=== PATIENT | female | born 1940 | race Hispanic/Latino ===

== ENCOUNTER 2016-09-23 13:33 | Emergency (ER) | payer MEDICARE, OTHER ==
[2016-09-23 13:33] VITALS: BMI 26.1
[2016-09-23 13:41] VITALS: TEMP 97.8
[2016-09-23] MEDS ORDERED: HYDROmorphone 1 mg Tab PO STA (14:00)
--- NOTE | 2016-09-23 14:04 | C.PDOC ---
History Of Present Illness <Kimberly Vázquez - Last Filed: 09/23/16 16:00> <Keily Ortega - Last Filed: 09/23/16 16:07> 75 y/o female presents to the ED with pain and redness of the left foot and the left great toe for 3 days. Pt notes not knowing why pain is present and took Tylenol without relief. Pt denies any fever, chills, SOB. nausea, vomiting, diarrhea, or any other complaints. (Kimberly Vázquez) 75 y/o female presents to the ED with pain and redness of the left foot and the left great toe for 3 days. Pt notes not knowing why pain is present and took Tylenol without relief. Pt denies any fever, chills, SOB. nausea, vomiting, diarrhea, or any other complaints. (Keily Ortega) History Per: Patient History/Exam Limitations: no limitations Onset/Duration Of Symptoms: Days Current Symptoms Are (Timing): Still Present Location Of Injury: Left: Foot (Left foot and great toe) Severity: Mild <Kimberly Vázquez - Last Filed: 09/23/16 16:00> History Per: Patient History/Exam Limitations: no limitations Onset/Duration Of Symptoms: Days Current Symptoms Are (Timing): Still Present Location Of Injury: Left: Foot (Left foot and great toe) Severity: Mild <Keily Ortega - Last Filed: 09/23/16 16:07> Time Seen by Provider: 09/23/16 13:44 Chief Complaint (Nursing): Abnormal Skin Integrity Past Medical History Reviewed: Historical Data, Nursing Documentation, Vital Signs Family History: States: Unknown Family Hx <Kimberly Vázquez - Last Filed: 09/23/16 16:00> Reviewed: Historical Data, Nursing Documentation, Vital Signs - Medical History PMH: Anxiety, Arthritis, Fractures (Right Tibia ORIF post hardware removal), HTN , Hypercholesterolemia, Mitral Valve Prolapse, Peripheral Edema, Pneumonia Denies: Chronic Kidney Disease Family History: States: Unknown Family Hx - Social History Hx Tobacco Use: No Hx Alcohol Use: No Hx Substance Use: No - Immunization History Hx Tetanus Toxoid Vaccination: No Hx Influenza Vaccination: Yes Hx Pneumococcal Vaccination: No <Keily Ortega - Last Filed: 09/23/16 16:07> Vital Signs: Last Vital Signs Temp 97.8 F 09/23/16 15:31 Pulse 90 09/23/16 15:31 Resp 20 09/23/16 15:31 BP 130/84 09/23/16 15:31 Pulse Ox 96 09/23/16 16:04 - [facility] Procedures APPLICATION OF SPLINT (11/26/13) CORONAR ARTERIOGR-2 CATH (01/25/14) LEFT HEART CARDIAC CATH (01/25/14) LT HEART ANGIOCARDIOGRAM (01/25/14) Review Of Systems Except As Marked, All Systems Reviewed And Found Negative. Constitutional: Negative for: Fever, Chills Respiratory: Negative for: Shortness of Breath Gastrointestinal: Negative for: Nausea, Vomiting, Diarrhea Musculoskeletal: Positive for: Foot Pain (Left foot and left great toe) <Kimberly Vázquez A - Last Filed: 09/23/16 16:00> Except As Marked, All Systems Reviewed And Found Negative. Constitutional: Negative for: Fever, Chills Respiratory: Negative for: Shortness of Breath Gastrointestinal: Negative for: Nausea, Vomiting, Diarrhea Musculoskeletal: Positive for: Foot Pain (Left foot and left great toe) <Keily Ortega A - Last Filed: 09/23/16 16:07> Physical Exam - Physical Exam Appears: Non-toxic, No Acute Distress Skin: Warm, Dry Head: Atraumatic, Normacephalic Eye(s): bilateral: Normal Inspection Cardiovascular: Rhythm Regular, No Murmur Respiratory: Normal Breath Sounds, No Rales, No Rhonchi, No Wheezing Gastrointestinal/Abdominal: Soft, No Tenderness Extremity: Tenderness (Left foot and great toe), Other (Erythema of the Left foot and left great toe) Neurological/Psych: Oriented x3, Normal Speech, Normal Cognition Gait: Steady <Kimberly Vázquez A - Last Filed: 09/23/16 16:00> - Physical Exam Appears: Non-toxic, No Acute Distress Skin: Warm, Dry Head: Atraumatic, Normacephalic Eye(s): bilateral: Normal Inspection Extremity: Tenderness (Left foot and left great toe), Other (Erythema of the Left foot and left great toe) Neurological/Psych: Oriented x3, Normal Speech Gait: Steady <Karl Ortegaia A - Last Filed: 09/23/16 16:07> ED Course And Treatment - Laboratory Results Result Diagrams: 09/23/16 14:14 09/23/16 14:14 Lab Interpretation: Normal ECG Interpretation: Normal O2 Sat by Pulse Oximetry: 96 (Room air) Pulse Ox Interpretation: Normal - Other Rad No standard instances X-Ray: Viewed By Me, Read By Radiologist Interpretation: FINDINGS: BONES: There is no acute fracture or bone destruction. There is diffuse bone demineralization. There is a large plantar calcaneal spur. JOINTS: There is moderate degenerative osteoarthrosis in the 1st MTP joint. There is moderate to severe degenerative osteoarthrosis in the intertarsal and tarsometatarsal joints. SOFT TISSUES: There is diffuse soft tissue swelling. OTHER FINDINGS: None. IMPRESSION: Moderate degenerative osteoarthrosis in the 1st MTP joint, intertarsal and tarsometatarsal joints. Progress Note: Patient presents with redness and pain in left 1 st MT x 3 days. Treated with dilaudid 2 mg PO. On re-evaluation feeling better, Treated with crutches and macrobid 100 mg PO Reassessment Condition: Improved <Kimberly Vázquez - Last Filed: 09/23/16 16:00> - Laboratory Results Result Diagrams: 09/23/16 14:14 09/23/16 14:14 O2 Sat by Pulse Oximetry: 96 (Room air) Pulse Ox Interpretation: Normal <Keily Ortega - Last Filed: 09/23/16 16:07> Medical Decision Making <Kimberly Vázquez - Last Filed: 09/23/16 16:00> <Keily Ortega - Last Filed: 09/23/16 16:07> Medical Decision Making: Plans: -Labs -X-Ray left foot -IV fluids -Dilaudid -Reassess and disposition (Kimberly Vázquez) Plans: -labs - (Keily Ortega) Disposition - Disposition Disposition Time: 16:00 <Kimberly Vázquez - Last Filed: 09/23/16 16:00> <Keily Ortega - Last Filed: 09/23/16 16:07> - Disposition Referrals: Podiatry Clinic [Outside] Carlos Grant MD [Staff Provider] - Disposition: HOME/ ROUTINE Additional Instructions: Return to ED if any increase symptoms Follow up with your PMD for further evaluation Prescriptions: HYDROmorphone [Dilaudid 2 mg Tab] 2 mg PO Q8 PRN #12 tab PRN Reason: Pain, Moderate (4-7) Nitrofurantoin Macrocrystals [Macrobid] 1 cap PO BID #14 cap Instructions: Gout (ED) - Scribe Statement The provider has reviewed the documentation as recorded by the Scribe <Kimberly Vázquez - Last Filed: 09/23/16 16:00> <Keily Ortega - Last Filed: 09/23/16 16:07> - Scribe Statement Geena amanda All medical record entries made by the Scribe were at my direction and personally dictated by me. I have reviewed the chart and agree that the record accurately reflects my personal performance of the history, physical exam, medical decision making, and the department course for this patient. I have also personally directed, reviewed, and agree with the discharge instructions and disposition. (Kimberly Vázquez)
[2016-09-23 14:17] LABS: BASO # 0.1 K/uL (0.0-0.2); BASO % 0.7 % (0.0-2.0); EOS # 0.2 K/uL (0.0-0.7); EOS % 2.5 % (0.0-4.0); HEMATOCRIT 33.1 % (34.0-47.0); LYMPH # 1.3 K/uL (1.0-4.3); LYMPH % 14.7 % (20.0-40.0); MEAN CELL VOLUME 97.5 fL (81.0-99.0); MEAN CORPUSCULAR HEMOGLOBIN 32.4 pg (27.0-31.0); MEAN CORPUSCULAR HGB CONC 33.3 g/dL (33.0-37.0); MEAN PLATELET VOLUME 7.7 fL (7.2-11.7); MONO % 11.1 % (0.0-10.0); RED CELL DISTRIBUTION WIDTH 13.6 % (11.5-14.5); WHITE BLOOD COUNT 8.7 K/uL (4.8-10.8)
[2016-09-23 14:39] LABS: RBC URINE 6 /hpf (0-3); URINE BACTERIA RARE (<OCC); URINE BILIRUBIN NEGATIVE (NEGATIVE); URINE COLOR Amber (YELLOW); URINE GLUCOSE (UA) NORMAL (Normal); URINE KETONE NEGATIVE (NEGATIVE); URINE LEUKOCYTE ESTERASE 3+ Leu/uL (Negative); URINE PROTEIN NEGATIVE (NEGATIVE); URINE UROBILINOGEN NORMAL mg/dL (0.2-1.0); WBC URINE 41 /hpf (0-5)
[2016-09-23 14:42] LABS: URINE BLOOD TRACE (NEGATIVE)
--- NOTE | 2016-09-23 15:04 | RAD ---
PROCEDURE: Left Foot Radiographs. HISTORY: pain COMPARISON: None. FINDINGS: BONES: There is no acute fracture or bone destruction. There is diffuse bone demineralization. There is a large plantar calcaneal spur. JOINTS: There is moderate degenerative osteoarthrosis in the 1st MTP joint. There is moderate to severe degenerative osteoarthrosis in the intertarsal and tarsometatarsal joints. SOFT TISSUES: There is diffuse soft tissue swelling. OTHER FINDINGS: None. IMPRESSION: Moderate degenerative osteoarthrosis in the 1st MTP joint, intertarsal and tarsometatarsal joints.
[2016-09-23 15:31] LABS: CHLORIDE 99 mmol/L (98-107)
[2016-09-23 15:32] VITALS: BP 130/84
[2016-09-23 15:32] LABS: POTASSIUM 3.8 mmol/L (3.6-5.2); SODIUM 137 mmol/L (132-148)
[2016-09-23 15:35] LABS: ALB/GLOB RATIO 1.2 (1.0-2.1); ALKALINE PHOSPHATASE 56 U/L (38-126); ALT/SGPT 22 U/L (9-52); AST/SGOT 22 U/L (14-36); BLOOD UREA NITROGEN 22 mg/dL (7-17); CARBON DIOXIDE 23 mmol/L (22-30); GFR AFRICAN-AMERICAN > 60; GLUCOSE,RANDOM 113 mg/dL (65-105); TOTAL PROTEIN 6.8 g/dL (6.3-8.3)
[2016-09-23 15:36] LABS: CALCIUM 8.6 mg/dl (8.6-10.4)
[2016-09-23 16:19] VITALS: PULSE 114; RESP 18; O2SAT 94
--- NOTE | 2016-09-23 16:33 | C.PDOC ---
History Of Present Illness 75 y/o female presents to the ED with pain and redness of the left foot and the left great toe for 3 days. Pt notes not knowing why pain is present and took Tylenol without relief. Pt denies any fever, chills, SOB. nausea, vomiting, diarrhea, or any other complaints. Time Seen by Provider: 09/23/16 13:44 Chief Complaint (Nursing): Abnormal Skin Integrity History Per: Patient History/Exam Limitations: no limitations Onset/Duration Of Symptoms: Days Current Symptoms Are (Timing): Still Present Location Of Injury: Left: Foot (Left foot and great toe) Severity: Mild Past Medical History Reviewed: Historical Data, Nursing Documentation, Vital Signs Vital Signs: Last Vital Signs Temp 97.8 F 09/23/16 15:31 Pulse 114 H 09/23/16 16:18 Resp 18 09/23/16 16:18 BP 130/84 09/23/16 15:31 Pulse Ox 94 L 09/23/16 16:45 - Medical History PMH: Anxiety, Arthritis, Fractures (Right Tibia ORIF post hardware removal), HTN , Hypercholesterolemia, Mitral Valve Prolapse, Peripheral Edema, Pneumonia Denies: Chronic Kidney Disease - [facility] Procedures APPLICATION OF SPLINT (11/26/13) CORONAR ARTERIOGR-2 CATH (01/25/14) LEFT HEART CARDIAC CATH (01/25/14) LT HEART ANGIOCARDIOGRAM (01/25/14) Family History: States: Unknown Family Hx - Social History Hx Tobacco Use: No Hx Alcohol Use: No Hx Substance Use: No - Immunization History Hx Tetanus Toxoid Vaccination: No Hx Influenza Vaccination: Yes Hx Pneumococcal Vaccination: No Review Of Systems Except As Marked, All Systems Reviewed And Found Negative. Constitutional: Negative for: Fever, Chills Respiratory: Negative for: Shortness of Breath Gastrointestinal: Negative for: Nausea, Vomiting, Diarrhea Musculoskeletal: Positive for: Foot Pain (Left foot and left great toe) Physical Exam - Physical Exam Appears: Non-toxic, No Acute Distress Skin: Warm, Dry Head: Atraumatic, Normacephalic Eye(s): bilateral: Normal Inspection Cardiovascular: Rhythm Regular, No Murmur Respiratory: Normal Breath Sounds, No Rales, No Rhonchi, No Wheezing Gastrointestinal/Abdominal: Soft, No Tenderness Extremity: Tenderness (Left foot and great toe), Other (Erythema of the Left foot and left great toe) Neurological/Psych: Oriented x3, Normal Speech, Normal Cognition Gait: Steady ED Course And Treatment - Laboratory Results Result Diagrams: 09/23/16 14:14 09/23/16 14:14 Lab Interpretation: Normal ECG: Interpreted By Me ECG Rhythm: Sinus Tachycardia ECG Interpretation: No Acute Changes Rate From EC O2 Sat by Pulse Oximetry: 94 (Room air) Pulse Ox Interpretation: Normal - Other Rad No standard instances X-Ray: Viewed By Me, Read By Radiologist Interpretation: FINDINGS: BONES: There is no acute fracture or bone destruction. There is diffuse bone demineralization. There is a large plantar calcaneal spur. JOINTS: There is moderate degenerative osteoarthrosis in the 1st MTP joint. There is moderate to severe degenerative osteoarthrosis in the intertarsal and tarsometatarsal joints. SOFT TISSUES: There is diffuse soft tissue swelling. OTHER FINDINGS: None. IMPRESSION: Moderate degenerative osteoarthrosis in the 1st MTP joint, intertarsal and tarsometatarsal joints. Progress Note: Progress Note: Patient presents with redness and pain in left 1 st MT x 3 days. Treated with dilaudid 2 mg PO. On re-evaluation feeling better , Treated with crutches and macrobid 100 mg PO Reassessment Condition: Improved Medical Decision Making Medical Decision Making: Plans: -Labs -X-Ray left foot -IV fluids -Dilaudid -Reassess and disposition Disposition Counseled Patient/Family Regarding: Studies Performed, Diagnosis, Need For Followup, Rx Given - Disposition Referrals: Podiatry Clinic [Outside] Carlos Grant MD [Staff Provider] - Disposition: HOME/ ROUTINE Disposition Time: 16:00 Condition: GOOD Additional Instructions: Return to ED if any increase symptoms Follow up with your PMD for further evaluation Prescriptions: HYDROmorphone [Dilaudid 2 mg Tab] 2 mg PO Q8 PRN #12 tab PRN Reason: Pain, Moderate (4-7) Nitrofurantoin Macrocrystals [Macrobid] 1 cap PO BID #14 cap Instructions: Gout (ED), Urinary Tract Infection in Women (ED) - POA Present On Arrival: None - Clinical Impression Clinical Impression: Gout, UTI (urinary tract infection) - Scribe Statement The provider has reviewed the documentation as recorded by the Scribe Geena amanda All medical record entries made by the Scribe were at my direction and personally dictated by me. I have reviewed the chart and agree that the record accurately reflects my personal performance of the history, physical exam, medical decision making, and the department course for this patient. I have also personally directed, reviewed, and agree with the discharge instructions and disposition.
--- NOTE | 2016-09-24 21:29 | CARD ---
APPROVED REPORT EKG Measurement Heart [id number] ID [id number] <Conclusion> Sinus tachycardia Nonspecific ST and T wave abnormality Abnormal ECG
== END 2016-09-23 17:04 | disposition home or self-care (01) ==
LOC: C.ER 13:33
DX: M10.9 Gout, unspecified (principal); N39.0 Urinary tract infection, site not specified
CPT/HCPCS: 73630; 80053; 81001; 85025; 93005; 97116; 97162; 99283; G8978; G8979; G8980

== ENCOUNTER 2016-11-16 13:29 | Emergency (ER) | payer MEDICARE, OTHER ==
[2016-11-16 13:30] VITALS: BMI 26.1
[2016-11-16 13:35] VITALS: TEMP 97.8
--- NOTE | 2016-11-16 14:18 | C.PDOC ---
History Of Present Illness 76 y/o F c PMHx herniated disc, osteoarthritis, HTN, gout, anxiety p/w fall down 3 steps this AM. Mechanical fall, walking without cane (lost her last 3). Denies lightheadeness or dizziness. Denies headstrike, LOC, N/V. Reports landed on back and R hip/shoulder struck door. R lower back pain and R upper back pain radiating to shoulder. Denies numbness, weakness. Acetaminophen and lidoderm cream used, mild relief. Pain worse with deep breath or movement. Denies chest pain or dyspnea. No urinary or bowel symptoms. Time Seen by Provider: 11/16/16 14:00 Chief Complaint (Nursing): Back Pain Past Medical History Vital Signs: Last Vital Signs Temp 97.8 F 11/16/16 13:33 Pulse 97 H 11/16/16 13:33 Resp 20 11/16/16 13:33 BP Pulse Ox 97 11/16/16 14:21 - Medical History PMH: Anxiety, Arthritis, Fractures (Right Tibia ORIF post hardware removal), HTN , Hypercholesterolemia, Mitral Valve Prolapse, Peripheral Edema, Pneumonia Denies: Chronic Kidney Disease - [facility] Procedures APPLICATION OF SPLINT (11/26/13) CORONAR ARTERIOGR-2 CATH (01/25/14) LEFT HEART CARDIAC CATH (01/25/14) LT HEART ANGIOCARDIOGRAM (01/25/14) Family History: States: Unknown Family Hx - Social History Hx Tobacco Use: No Hx Alcohol Use: No Hx Substance Use: No - Immunization History Hx Tetanus Toxoid Vaccination: No Hx Influenza Vaccination: Yes Hx Pneumococcal Vaccination: No Review Of Systems Except As Marked, All Systems Reviewed And Found Negative. Constitutional: Negative for: Fever Cardiovascular: Negative for: Chest Pain Physical Exam - Physical Exam Appears: No Acute Distress Skin: No Rash, No Ecchymosis Head: Atraumatic, Normacephalic Eye(s): bilateral: PERRL, EOMI Oral Mucosa: Moist Neck: Normal ROM, No Midline Cervical Tenderness, No Step Off Deformity Chest: No Deformity, No Tenderness Cardiovascular: Rhythm Regular Respiratory: Normal Breath Sounds Gastrointestinal/Abdominal: Soft, No Tenderness Back: No Vertebral Tenderness Extremity: No Normal ROM (decreased secondary to pain in RUE and RLE), No Swelling Pulses: Left Radial: Normal, Right Radial: Normal DTR: Bicep (R): 2+, Bicep (L): 2+, Knee (R): 2+, Knee (L): 2+ Neurological/Psych: Normal Speech, Normal Cognition, Normal Sensation ED Course And Treatment O2 Sat by Pulse Oximetry: 97 Medical Decision Making Medical Decision Making: Plan: Shoulder XR, R hip, toradol 15mg IM Patient states she feels much better. XRs negative for fracture. Lumbar XR shows Grade 1-2 anterolisthesis. Patient states she will see her PMD tomorrow. Otherwise, continue NSAIDs, compresses, instructed to return for worsening pain , vomiting, dyspnea, hematuria. Disposition - Disposition Referrals: Carlos Grant MD [Staff Provider] - Disposition: HOME/ ROUTINE Disposition Time: 16:30 Condition: STABLE Prescriptions: Ibuprofen [Motrin] 1 tab PO Q6 #30 tab Instructions: Fall Prevention for Older Adults (ED) - Clinical Impression Clinical Impression: Contusion, Low back pain, Shoulder pain, Anterolisthesis
--- NOTE | 2016-11-16 16:22 | RAD ---
PROCEDURE: Right Hip Radiographs. HISTORY: fall COMPARISON: None. FINDINGS: BONES: Normal. No fracture. JOINTS: Normal. SOFT TISSUES: Normal. OTHER FINDINGS: None. IMPRESSION: Normal radiographs of right hip.
--- NOTE | 2016-11-16 16:24 | RAD ---
PROCEDURE: Radiographs of the Lumbar Spine. HISTORY: lower back pain s/p fall COMPARISON: No prior. FINDINGS: BONES: The vertebral bodies are maintained in height. The transverse processes and posterior elements appear intact. There is mild levoscoliosis of the lumbar spine. There is grade 1-2 anterolisthesis at L5-S1. There is partial lumbarization of the S1 vertebra. DISC SPACES: Narrowed L5-S1 disc space. Remaining disc spaces are maintained in height. OTHER FINDINGS: None. IMPRESSION: Grade 1-2 anterolisthesis at L5-S1. Incidental partial lumbarization of S1. Mild lumbar levoscoliosis.
--- NOTE | 2016-11-16 16:25 | RAD ---
PROCEDURE: Radiographs of the Right Shoulder HISTORY: fall COMPARISON: No prior. FINDINGS: BONES: Normal. No fracture. JOINTS: Mild glenohumeral osteoarthritis. Acromioclavicular joint is unremarkable. SOFT TISSUES: Normal. OTHER FINDINGS: None. IMPRESSION: Mild glenohumeral osteoarthritis. No acute fracture.
[2016-11-16 17:08] VITALS: BP 132/77; PULSE 66; RESP 18; O2SAT 100
== END 2016-11-16 17:09 | disposition home or self-care (01) ==
LOC: C.ER 13:29
DX: T14.8 Other injury of unspecified body region (principal); W10.9XXA Fall (on) (from) unspecified stairs and steps, initial encounter; M54.5 Low back pain; M25.511 Pain in right shoulder; M51.86 Other intervertebral disc disorders, lumbar region
CPT/HCPCS: 72100; 73030; 73502; 96372; 99283; J1885

== ENCOUNTER 2017-05-08 07:31 | Emergency (ER) | payer MEDICARE, OTHER ==
[2017-05-08 07:31] VITALS: BMI 26.1
[2017-05-08] MEDS ORDERED: Sodium Chloride 0.9% 1,000 ML IV ONE (08:08)
[2017-05-08] MEDS ORDERED: Iohexol 240 (50 ml) PO STA (08:08)
--- NOTE | 2017-05-08 08:19 | C.PDOC ---
History Of Present Illness 76-year-old female, Anxiety, Arthritis, Fractures (Right Tibia ORIF post hardware removal), Hypertension, Hypercholesterolemia, Mitral Valve Prolapse, Peripheral Edema, and Pneumonia, presents to the emergency department with complaints of new onset hematuria/GI bleed, this morning. Patient states she went to the bathroom this morning, urinated and noted blood in toilet. Patient notes normal BM afterward and did not see any blood. States she urinated once more prior to coming to hospital, and did not note any blood in toilet. Patient notes a Hx of hemorrhoids, and is currently complaining of mild rectal soreness. Denies abdominal pain, nausea/vomiting, fevers, chills, shortness of breath, chest pain, or any other associated symptoms. No other complaints at this time. Time Seen by Provider: 05/08/17 07:49 Chief Complaint (Nursing): Female Genitourinary History Per: Patient History/Exam Limitations: no limitations Onset/Duration Of Symptoms: Days Current Symptoms Are (Timing): Still Present Severity: Moderate Past Medical History Reviewed: Historical Data, Nursing Documentation, Vital Signs Vital Signs: Last Vital Signs Temp 98.2 F 05/08/17 07:45 Pulse 88 05/08/17 07:45 Resp 16 05/08/17 07:45 BP 145/90 05/08/17 07:45 Pulse Ox 99 05/08/17 08:34 - Medical History PMH: Anxiety, Arthritis, Fractures (Right Tibia ORIF post hardware removal), HTN , Hypercholesterolemia, Mitral Valve Prolapse, Peripheral Edema, Pneumonia Denies: Chronic Kidney Disease - [facility] Procedures APPLICATION OF SPLINT (11/26/13) CORONAR ARTERIOGR-2 CATH (01/25/14) LEFT HEART CARDIAC CATH (01/25/14) LT HEART ANGIOCARDIOGRAM (01/25/14) Family History: States: No Known Family Hx - Social History Hx Tobacco Use: No Hx Alcohol Use: No Hx Substance Use: No - Immunization History Hx Tetanus Toxoid Vaccination: No Hx Influenza Vaccination: Yes Hx Pneumococcal Vaccination: No Review Of Systems Except As Marked, All Systems Reviewed And Found Negative. Constitutional: Negative for: Fever, Chills Cardiovascular: Negative for: Chest Pain, Palpitations Respiratory: Negative for: Shortness of Breath Gastrointestinal: Positive for: Hematochezia (questionable), Rectal Pain (mild) . Negative for: Vomiting, Diarrhea Genitourinary: Positive for: Hematuria (questionable) Musculoskeletal: Negative for: Back Pain Physical Exam - Physical Exam Appears: Non-toxic, No Acute Distress Skin: Warm, Dry, No Rash Head: Atraumatic, Normacephalic Eye(s): bilateral: Normal Inspection, PERRL, EOMI Nose: Normal Oral Mucosa: Moist Neck: Normal ROM Chest: Symmetrical Cardiovascular: Rhythm Regular, No Murmur Respiratory: Normal Breath Sounds, No Accessory Muscle Use Gastrointestinal/Abdominal: Soft, No Tenderness, No Guarding, No Rebound Rectal: Hemorrhoids (minimal, no active bleeding.), Other (BRB in rectum; RN Yunior, retort forker at bedside.) Extremity: Normal ROM Neurological/Psych: Oriented x3, Normal Speech (no focal deficit) ED Course And Treatment - Laboratory Results Result Diagrams: 05/08/17 08:14 05/08/17 08:14 O2 Sat by Pulse Oximetry: 99 Disposition - Disposition Forms: [facility] ([place]) - Scribe Statement The provider has reviewed the documentation as recorded by the Scribe (Marissa Torres) All medical record entries made by the Scribe were at my direction and personally dictated by me. I have reviewed the chart and agree that the record accurately reflects my personal performance of the history, physical exam, medical decision making, and the department course for this patient. I have also personally directed, reviewed, and agree with the discharge instructions and disposition.
[2017-05-08] MEDS ORDERED: Sodium Chloride 0.9% 1,000 ML ONE (08:21)
[2017-05-08] MEDS ORDERED: Iohexol 240 (50 ml) ONE (08:21)
[2017-05-08 08:22] LABS: BASO # 0.1 K/uL (0.0-0.2); BASO % 0.8 % (0.0-2.0); EOS # 0.2 K/uL (0.0-0.7); EOS % 3.1 % (0.0-4.0); HEMATOCRIT 32.4 % (34.0-47.0); LYMPH # 0.9 K/uL (1.0-4.3); LYMPH % 13.5 % (20.0-40.0); MEAN CELL VOLUME 97.9 fL (81.0-99.0); MEAN CORPUSCULAR HEMOGLOBIN 33.8 pg (27.0-31.0); MEAN CORPUSCULAR HGB CONC 34.5 g/dL (33.0-37.0); MEAN PLATELET VOLUME 7.5 fL (7.2-11.7); MONO # 0.6 K/uL (0.0-0.8); NRBC % 0.1 % (0.0-2.0); RED CELL DISTRIBUTION WIDTH 13.5 % (11.5-14.5); WHITE BLOOD COUNT 6.7 K/uL (4.8-10.8)
[2017-05-08 08:29] LABS: CHLORIDE 103 mmol/L (98-107); SODIUM 137 mmol/L (132-148)
[2017-05-08 08:30] LABS: POTASSIUM 3.3 mmol/L (3.6-5.2)
[2017-05-08 08:32] LABS: ALB/GLOB RATIO 1.5 (1.0-2.1); ALKALINE PHOSPHATASE 56 U/L (38-126); ALT/SGPT 38 U/L (9-52); AST/SGOT 22 U/L (14-36); BILIRUBIN,TOTAL 1.5 mg/dL (0.2-1.3); BLOOD UREA NITROGEN 14 mg/dL (7-17); CARBON DIOXIDE 22 mmol/L (22-30); GFR AFRICAN-AMERICAN > 60; GLUCOSE,RANDOM 91 mg/dL (65-105); TOTAL PROTEIN 6.5 g/dL (6.3-8.3)
[2017-05-08 08:33] LABS: CALCIUM 8.4 mg/dl (8.6-10.4)
[2017-05-08 08:50] LABS: RBC URINE 2 /hpf (0-3); URINE BACTERIA RARE (<OCC); URINE BILIRUBIN NEGATIVE (NEGATIVE); URINE BLOOD NEGATIVE (NEGATIVE); URINE COLOR Yellow (YELLOW); URINE GLUCOSE (UA) NORMAL (Normal); URINE KETONE NEGATIVE (NEGATIVE); URINE LEUKOCYTE ESTERASE 1+ Leu/uL (Negative); URINE PROTEIN NEGATIVE (NEGATIVE); URINE UROBILINOGEN NORMAL mg/dL (0.2-1.0); WBC URINE 12 /hpf (0-5)
[2017-05-08] MEDS ORDERED: Iodixanol 320 mg/ml 150 ml Bottle IV ONE (09:43)
[2017-05-08 09:47] VITALS: O2SAT 97
--- NOTE | 2017-05-08 10:45 | CT ---
PROCEDURE: CT Abdomen and Pelvis with contrast HISTORY: GI bleeding COMPARISON: 10/01/2015. TECHNIQUE: Contrast dose: 150 mL Visipaque 320 Radiation dose: Total exam DLP = 341.34 mGy-cm. This CT exam was performed using one or more of the following dose reduction techniques: Automated exposure control, adjustment of the mA and/or kV according to patient size, and/or use of iterative reconstruction technique. FINDINGS: LOWER THORAX: The lung bases are clear. LIVER: The liver is normal in size and there is diffuse fatty infiltration. No gross lesion or ductal dilatation. GALLBLADDER AND BILE DUCTS: There are no calcified gallstones. PANCREAS: Normal in size and there is homogeneous enhancement. No gross lesion or ductal dilatation. SPLEEN: Normal in size and appearance. ADRENALS: No discrete nodule. KIDNEYS AND URETERS: Normal in size with homogeneous enhancement. No hydronephrosis. No solid mass. VASCULATURE: No aortic aneurysm. BOWEL: There is persistent circumferential mural thickening in the pylorus of the stomach. The proximal small bowel loops are normal in caliber. There is extensive colonic diverticulosis. There is diffuse circumferential mural thickening in the left hemicolon, worse in the proximal descending colon. No evidence of bowel dilatation or obstruction. APPENDIX: No inflammatory changes in the right lower quadrant. PERITONEUM: No free fluid. No free air. LYMPH NODES: No enlarged lymph nodes. BLADDER: Grossly normal in appearance. REPRODUCTIVE: The uterus is normal in size. BONES: No acute fracture. Diffuse bone demineralization and multilevel degenerative disc disease, worse at L5-S1 with degenerative grade 1 anterior listhesis of L5 on S1. There is an age indeterminate but likely chronic osteoporotic superior endplate compression deformity in the T12 vertebral body, new since the prior examination. OTHER FINDINGS: There is a small sliding hiatal hernia. IMPRESSION: 1. Findings are concerning for nonspecific infectious/ inflammatory colitis involving the left hemicolon, worse in the proximal descending colon. No evidence of bowel dilatation or obstruction. No evidence of abscess or drainable fluid collection. 2. Colonic diverticulosis without CT evidence for acute diverticulitis. 3. Fatty liver. 4. Persistent circumferential mural thickening in the pylorus of the stomach which likely represents inflammatory gastritis.
--- NOTE | 2017-05-08 11:42 | C.PDOC ---
History Of Present Illness 76-year-old female, Anxiety, Arthritis, Fractures (Right Tibia ORIF post hardware removal), Hypertension, Hypercholesterolemia, Mitral Valve Prolapse, Peripheral Edema, and Pneumonia, presents to the emergency department with complaints of new onset hematuria/GI bleed, this morning. Patient states she went to the bathroom this morning, urinated and noted blood in toilet. Patient notes normal BM afterward and did not see any blood. States she urinated once more prior to coming to hospital, and did not note any blood in toilet. Patient notes a Hx of hemorrhoids, and is currently complaining of mild rectal soreness. Denies abdominal pain, nausea/vomiting, fevers, chills, shortness of breath, chest pain, or any other associated symptoms. No other complaints at this time. Time Seen by Provider: 05/08/17 07:49 Chief Complaint (Nursing): Female Genitourinary History Per: Patient History/Exam Limitations: no limitations Onset/Duration Of Symptoms: Hrs Current Symptoms Are (Timing): Still Present Number Of Bleeding Episodes: One Severity: Moderate Past Medical History Reviewed: Historical Data, Nursing Documentation, Vital Signs Vital Signs: Last Vital Signs Temp 98.2 F 05/08/17 07:45 Pulse 77 05/08/17 09:46 Resp 17 05/08/17 09:46 BP 146/92 H 05/08/17 09:46 Pulse Ox 97 05/08/17 11:43 - Medical History PMH: Anxiety, Arthritis, Fractures (Right Tibia ORIF post hardware removal), HTN , Hypercholesterolemia, Mitral Valve Prolapse, Peripheral Edema, Pneumonia Denies: Chronic Kidney Disease - [facility] Procedures APPLICATION OF SPLINT (11/26/13) CORONAR ARTERIOGR-2 CATH (01/25/14) LEFT HEART CARDIAC CATH (01/25/14) LT HEART ANGIOCARDIOGRAM (01/25/14) Family History: States: No Known Family Hx - Social History Hx Tobacco Use: No Hx Alcohol Use: No Hx Substance Use: No - Immunization History Hx Tetanus Toxoid Vaccination: No Hx Influenza Vaccination: Yes Hx Pneumococcal Vaccination: No Review Of Systems Except As Marked, All Systems Reviewed And Found Negative. Constitutional: Negative for: Fever, Chills Respiratory: Negative for: Shortness of Breath Gastrointestinal: Positive for: Hematochezia. Negative for: Nausea, Vomiting Musculoskeletal: Negative for: Back Pain Skin: Negative for: Rash Neurological: Negative for: Weakness, Numbness, Headache, Dizziness Physical Exam - Physical Exam Appears: Non-toxic, No Acute Distress Skin: Warm, Dry, No Rash Head: Atraumatic, Normacephalic Eye(s): bilateral: Normal Inspection, PERRL, EOMI Nose: Normal Oral Mucosa: Moist Lips: Normal Appearing Neck: Normal ROM Cardiovascular: Rhythm Regular, No Murmur Respiratory: Normal Breath Sounds, No Accessory Muscle Use Gastrointestinal/Abdominal: Soft, No Tenderness Rectal: Hemorrhoids (minimal, no active bleeding), Other (BRB in rectum; RN Yunior, instructional facilitator at bedside.) Extremity: Normal ROM ED Course And Treatment - Laboratory Results Result Diagrams: 05/08/17 08:14 05/08/17 08:14 O2 Sat by Pulse Oximetry: 97 Progress - Re-Evaluation Re-evaluation Note: 05/08/17 11:44 NO RECUR GI BLEED SINCE INITIAL EVAL. PS 2 LOOSE BM. NO ASSOC ABD OR RECTAL PAIN. VSS. ABX, FU GI - Data Reviewed Data Reviewed: Lab, Diagnostic imaging, Old records Disposition Counseled Patient/Family Regarding: Studies Performed, Diagnosis, Need For Followup, Rx Given - Disposition Referrals: Richard Rockwell MD [Staff Provider] - YOUR,PMD [Other] Disposition: HOME/ ROUTINE Disposition Time: 11:44 Condition: IMPROVED Prescriptions: Ciprofloxacin [Cipro] 1 tab PO BID #14 tab Dicyclomine [Bentyl] 20 mg PO TID PRN #12 tab PRN Reason: Pain Metronidazole [Flagyl] 500 mg PO BID #14 tab Instructions: Diverticulosis (ED), Colitis (ED) Forms: [employer] (Amharic) - Clinical Impression Clinical Impression: Diverticulosis, Rectal bleed, Colitis - Scribe Statement The provider has reviewed the documentation as recorded by the Scribe (Marissa Torres) All medical record entries made by the Scribe were at my direction and personally dictated by me. I have reviewed the chart and agree that the record accurately reflects my personal performance of the history, physical exam, medical decision making, and the department course for this patient. I have also personally directed, reviewed, and agree with the discharge instructions and disposition.
[2017-05-08 11:44] VITALS: BP 155/78; PULSE 80; RESP 16; TEMP 97.6
== END 2017-05-08 12:04 | disposition home or self-care (01) ==
LOC: C.ER 07:31
DX: K57.30 Diverticulosis of large intestine without perforation or abscess without bleeding (principal); K52.9 Noninfective gastroenteritis and colitis, unspecified; K62.5 Hemorrhage of anus and rectum
CPT/HCPCS: 74177; 80053; 81001; 85025; 85610; 85730; 87086; 96360; 96361; 99285; G0328; J7040; Q9966; Q9967

== ENCOUNTER 2017-12-28 22:13 | Emergency (ER) | payer MEDICARE, OTHER ==
[2017-12-28 22:14] VITALS: BMI 26.1
[2017-12-28 22:45] VITALS: BP 150/85; PULSE 73; RESP 20; TEMP 97.8; O2SAT 98
--- NOTE | 2017-12-28 23:25 | C.PDOC ---
History Of Present Illness 77 y/o female presents to ED for complaints of left wrist pain that began this afternoon. Patient states she was walking into a store, missed a step, then fell on her left hand. Patient also reports noticing more swelling which prompted the ED visit. Left hand dominant. No change in sensation. Denies any other injuries, trauma, or physical complaints. No loc or head trauma. Time Seen by Provider: 12/28/17 22:50 Chief Complaint (Nursing): Upper Extremity Problem/Injury History Per: Patient History/Exam Limitations: no limitations Onset/Duration Of Symptoms: Hrs Current Symptoms Are (Timing): Still Present Quality: "Pain" Exacerbating Factor(s): Nothing Recent travel outside of the [place]: No Past Medical History Reviewed: Historical Data, Nursing Documentation, Vital Signs Vital Signs: Last Vital Signs Temp 97.8 F 12/28/17 22:42 Pulse 73 12/28/17 22:42 Resp 20 12/28/17 22:42 BP 150/85 12/28/17 22:42 Pulse Ox 98 12/29/17 01:23 - Medical History PMH: Anxiety, Arthritis, Fractures (Right Tibia ORIF post hardware removal), HTN , Hypercholesterolemia, Mitral Valve Prolapse, Peripheral Edema, Pneumonia - [facility] Procedures APPLICATION OF SPLINT (11/26/13) CORONAR ARTERIOGR-2 CATH (01/25/14) LEFT HEART CARDIAC CATH (01/25/14) LT HEART ANGIOCARDIOGRAM (01/25/14) Family History: States: Unknown Family Hx - Social History Hx Tobacco Use: No Hx Alcohol Use: No Hx Substance Use: No - Immunization History Hx Tetanus Toxoid Vaccination: No Hx Influenza Vaccination: Yes Hx Pneumococcal Vaccination: No Review Of Systems Constitutional: Negative for: Fever, Chills Gastrointestinal: Negative for: Nausea, Vomiting, Abdominal Pain, Diarrhea Musculoskeletal: Positive for: Hand Pain (Left wrist pain) Skin: Negative for: Rash Neurological: Negative for: Weakness, Numbness Physical Exam - Physical Exam Appears: Non-toxic, No Acute Distress Skin: Warm, Dry Head: Atraumatic, Normacephalic Eye(s): bilateral: Normal Inspection, EOMI Nose: Normal Oral Mucosa: Moist Neck: Normal ROM, Supple Chest: Symmetrical, No Tenderness Respiratory: No Accessory Muscle Use Extremity: No Normal ROM (decreased secondary to pain), Tenderness (Radial aspect of left wrist ), Capillary Refill (< 2 sec), No Deformity, Swelling ( Radial aspect of left wrist ) Pulses: Left Radial: Normal, Right Radial: Normal Neurological/Psych: Oriented x3, Normal Speech (Speaking in full sentences ), Normal Sensation, Other (No focal deficits ) Gait: Steady ED Course And Treatment O2 Sat by Pulse Oximetry: 98 (RA) Pulse Ox Interpretation: Normal - Other Rad Left Wrist X-Ray X-Ray: Viewed By Me, Read By Radiologist Interpretation: EXAM: XR Left Wrist Complete, 3 or More Views. CLINICAL HISTORY: 77 years old, female; Injury or trauma; Fall; Initial encounter; Sprain or strain; Carpals; Left. TECHNIQUE: Frontal, lateral and oblique views of the left wrist. COMPARISON: No relevant prior studies available. FINDINGS: Bones/joints: There is generalized primary osteoarthritis with narrowing of the intercarpal,. radiocarpal, and metacarpal carpal articulations.. No acute fracture. No dislocation. Soft tissues: Unremarkable. No radiopaque foreign body. IMPRESSION: Generalized osteoarthritis. Negative for acute bony abnormality Progress Note: Re-Evaluation: - Sugar tong splint applied by identification technician. - Shoulder sling provided. - Instructed RICE and advised to follow up with orthopedic in 1-2 days. Disposition - Disposition Referrals: Carlos Grant MD [Primary Care Provider] - Fareed Torres MD [Staff Provider] - Disposition: HOME/ ROUTINE Disposition Time: 00:08 Condition: STABLE Additional Instructions: Rest, ice and elevate the area. Follow up with the bone doctor in 1-2 days. Instructions: Wrist Sprain (DC) Forms: [facility] (Romanian) - Clinical Impression Clinical Impression: Wrist contusion
--- NOTE | 2017-12-29 10:41 | RAD ---
PROCEDURE: Left Wrist Radiographs. HISTORY: trauma COMPARISON: None. FINDINGS: BONES: No appreciable fracture. Deformity of the navicular. JOINTS: Diffuse joint space narrowing, worst at the 1st metacarpophalangeal joint. SOFT TISSUES: Normal. OTHER FINDINGS: None. IMPRESSION: Circumferential wrist soft tissue swelling, worst at the dorsum. No appreciable fracture or dislocation. Please note osteopenia decreases sensitivity for fractures. If there is clinical concern for acute fracture, MRI can be obtained for further evaluation. Degenerative changes, worst at the 1st metacarpophalangeal joint.
== END 2017-12-29 00:15 | disposition home or self-care (01) ==
LOC: C.ER 22:13 → SUPCPDRO 22:13 → C.ER 12-29 00:15
DX: S60.212A Contusion of left wrist, initial encounter (principal); W10.9XXA Fall (on) (from) unspecified stairs and steps, initial encounter; Y93.01 Activity, walking, marching and hiking; Y92.512 Supermarket, store or market as the place of occurrence of the external cause

== ENCOUNTER 2018-06-02 05:43 | Emergency (ER) | payer MEDICARE, MEDICAID ==
[2018-06-02 05:43] VITALS: BMI 26.1
[2018-06-02 06:00] VITALS: BP 127/83; PULSE 106; RESP 20; TEMP 98.6; O2SAT 99
--- NOTE | 2018-06-02 06:26 | C.PDOC ---
History Of Present Illness 77 year old female presents to the ED for evaluation of right pinky finger pain and swelling. Patient reports she fell and injured her finger yesterday. Patient denies LOC, headache, nausea, vomiting, weakness, numbness. Time Seen by Provider: 06/02/18 06:03 Chief Complaint (Nursing): Finger,Hand,&Wrist History Per: Patient History/Exam Limitations: no limitations Onset/Duration Of Symptoms: Days Current Symptoms Are (Timing): Still Present Quality: "Pain" Exacerbating Factor(s): Movement Recent travel outside of the [place]: No Additional History Per: Patient Past Medical History Reviewed: Historical Data, Nursing Documentation, Vital Signs Vital Signs: Last Vital Signs Temp 98.6 F 06/02/18 05:53 Pulse 106 H 06/02/18 05:53 Resp 20 06/02/18 05:53 BP 127/83 06/02/18 05:53 Pulse Ox 99 06/02/18 05:53 - Medical History PMH: Anxiety, Arthritis, Fractures (Right Tibia ORIF post hardware removal), HTN, Hypercholesterolemia, Mitral Valve Prolapse, Osteoporosis, Peripheral Edema, Pneumonia Denies: Chronic Kidney Disease Surgical History: No Surg Hx - [facility] Procedures APPLICATION OF SPLINT (11/26/13) CORONAR ARTERIOGR-2 CATH (01/25/14) LEFT HEART CARDIAC CATH (01/25/14) LT HEART ANGIOCARDIOGRAM (01/25/14) Family History: States: Unknown Family Hx - Social History Hx Tobacco Use: No Hx Alcohol Use: No Hx Substance Use: No - Immunization History Hx Tetanus Toxoid Vaccination: No Hx Influenza Vaccination: Yes Hx Pneumococcal Vaccination: No Review Of Systems Constitutional: Negative for: Fever, Chills Eyes: Negative for: Vision Change Gastrointestinal: Negative for: Nausea, Vomiting Musculoskeletal: Positive for: Hand Pain Skin: Negative for: Rash Neurological: Negative for: Weakness, Numbness, Headache Physical Exam - Physical Exam Appears: Non-toxic, No Acute Distress Skin: Normal Color, Warm, Dry Head: Atraumatic, Normacephalic Eye(s): bilateral: Normal Inspection Neck: Normal ROM, Supple Extremity: Normal ROM (decreased right 5th finger deu to pain), Tenderness (right 5th MCP), Capillary Refill (< 2 seconds), No Deformity, Swelling (right 5th MCP) Pulses: Left Radial: Normal, Right Radial: Normal Neurological/Psych: Oriented x3, Normal Speech, Normal Cognition, Normal Motor, Normal Sensation Gait: Steady ED Course And Treatment O2 Sat by Pulse Oximetry: 99 (ON RA) Pulse Ox Interpretation: Normal - Other Rad Right hand X-Ray X-Ray: Interpreted by Me, Viewed By Me Interpretation: No fracture or dislocation Progress Note: Plan: - Motrin 600 mg po. - Right hand X-Ray. On reassessment, patient is resting comfortably, and is in no acute distress. Patient was instructed to follow up with physician/clinic in 1-2 days for further evaluation. Disposition Counseled Patient/Family Regarding: Diagnosis, Need For Followup - Disposition Disposition Time: 06:39 Condition: STABLE Additional Instructions: Please follow up with PMD Take advil for pain Apply Ice to area Return to ER if worse Instructions: Finger Sprain (DC) Forms: [employer] [facility] (Nigerien) - Clinical Impression Clinical Impression: Finger injury, Sprain of right little finger - PA / MECHANICAL SYSTEM TECHNICIAN / Resident Statement MD/DO has reviewed & agrees with the documentation as recorded. - Scribe Statement The provider has reviewed the documentation as recorded by the Scribe Kevin Garsia All medical record entries made by the Scribmiranda were at my direction and personally dictated by me. I have reviewed the chart and agree that the record accurately reflects my personal performance of the history, physical exam, medical decision making, and the department course for this patient. I have also personally directed, reviewed, and agree with the discharge instructions and disposition.
--- NOTE | 2018-06-02 07:46 | RAD ---
Date of service: 06/02/2018 PROCEDURE: Right small finger radiographs. HISTORY: pain, 5th finger- fall COMPARISON: None. TECHNIQUE: AP radiograph of the right hand, as well as spot oblique and lateral images of small finger were obtained. FINDINGS: RIGHT SMALL FINGER: No fracture seen. JOINTS: Extensive and diffuse joint space loss, hand and wrist, with exuberant osteophytosis, subchondral cyst and few scattered erosions suspect ulnar side 5th meta carpal head and radial side 1st metacarpal head SOFT TISSUES: Swelling most pronounced proximal interphalangeal joint levels also at 5th metacarpal phalangeal joint. OTHER FINDINGS: None. IMPRESSION: Extensive arthrosis an erosive osteoarthrosis is a consideration. No fracture seen.
== END 2018-06-02 06:55 | disposition home or self-care (01) ==
LOC: C.ER 05:43
DX: S63.616A Unspecified sprain of right little finger, initial encounter (principal); W19.XXXA Unspecified fall, initial encounter; E78.00 Pure hypercholesterolemia, unspecified; I10 Essential (primary) hypertension; I34.1 Nonrheumatic mitral (valve) prolapse; M81.0 Age-related osteoporosis without current pathological fracture